=== PATIENT | male | born 1990 | race American Indian/Alaskan Native ===

== ENCOUNTER 2021-04-25 17:49 | Emergency (ER) | payer SELFPAY ==
[2021-04-25 20:44] LABS: Bilirubin,Urine NEG (Negative); Blood,Urine NEG (Negative); Color,Urine Yellow (Yellow); Mucus,Urine 3+ /HPF; Urobilinogen,Urine < 2.0 mg/dL (<2.0)
[2021-04-25 20:52] VITALS: BP 122/58
[2021-04-25 21:01] LABS: Basophils # (Auto) 0.1 K/mm3 (0.0-0.1); Basophils % (Auto) 0.6 % (0.0-1.8); Hematocrit 40.9 % (35.5-45.6); Hemoglobin 13.7 gm/dl (11.8-15.2); Lymphocytes # (Auto) 0.7 K/mm3 (1.2-5.4); Lymphocytes % (Auto) 7.6 % (13.4-35.0); Mean Corpuscular HGB Conc 34 % (32-34); Mean Corpuscular Volume 81 fl (84-94); Monocytes # (Auto) 0.6 K/mm3 (0.0-0.8); Monocytes % (Auto) 6.2 % (0.0-7.3); Platelet Count 183 K/mm3 (140-440); Red Blood Count 5.08 M/mm3 (3.65-5.03); Red Cell Distribution Width 15.1 % (13.2-15.2)
[2021-04-25] MEDS ORDERED: SODIUM CHLORIDE 0.9% 1000 ML 1,000 ML IV ONE (21:17)
[2021-04-25] MEDS ORDERED: ONDANSETRON 4 MG/2 ML INJ IV ONE (21:17)
[2021-04-25] MEDS ORDERED: fentaNYL 100 MCG/2 ML INJ IV ONE (21:17)
[2021-04-25 21:18] LABS: Alanine Aminotransferase 8 units/L (7-56); Albumin 4.9 g/dL (3.9-5); BUN/Creatinine Ratio 11; Blood Urea Nitrogen 14 mg/dL (9-20); Calcium 10.2 mg/dL (8.4-10.2); Hemolysis Index 1
[2021-04-25] MEDS ORDERED: DICYCLOMINE 20 MG/2 ML INJ IM ONE (21:18)
--- NOTE | 2021-04-25 21:27 | Emergency Department Report ---
HPI - General Chief Complaint: Abdominal Pain Time Seen by Provider: 04/25/21 21:12 - HPI HPI: Room 42 The patient is a 30-year-old male present with a chief complaint of nausea vomiting diarrhea. Patient states he believes he has food poisoning because he ate some chicken [employer]'s pizza last night and a few hours later he developed nausea vomiting diarrhea. Patient planes of intermittent diffuse abdominal pain. Patient denies history of fever. Patient states no one else ate the same meal as he. Patient denies any sick contacts. Patient was not vaccinated against Covid. Patient currently gives his pain a score of 8/10 ED Past Medical Hx - Past Medical History Hx HIV: Yes (Unknown CD4. On antiretrovirals) - Surgical History Past Surgical History?: No - Family History Family history: no significant - Social History Smoking Status: Current Some Day Smoker Substance Use Type: None (Denies illicit drug use), Alcohol (Occasional) - Medications Home Medications: Home Medications Medication Instructions Recorded Confirmed Last Taken Type Dicyclomine [Bentyl] 20 mg PO QID #20 tablet 04/25/21 Unknown Rx Diphenoxylate/Atropine [Lomotil] 2 tab PO QID PRN #20 tablet 04/25/21 Unknown Rx HYDROcodone/APAP 5-325 [[place] 1 - 2 each PO Q6HR PRN #7 tablet 04/25/21 Unknown Rx 5/325] Metoclopramide [Reglan] 10 mg PO TID #30 tab 04/25/21 Unknown Rx ED Review of Systems ROS: Stated complaint: NAUSEA/VOMITING Other details as noted in HPI Constitutional: denies: fever Eyes: denies: eye pain ENT: denies: throat pain Respiratory: no symptoms reported Cardiovascular: denies: chest pain Endocrine: no symptoms reported Gastrointestinal: abdominal pain, nausea, vomiting, diarrhea Genitourinary: denies: dysuria Musculoskeletal: denies: back pain Neurological: denies: headache Physical Exam - Physical Exam Vital Signs: Vital Signs 04/25/21 20:45 Temperature 98.5 F Pulse Rate 100 H Respiratory 20 Rate Blood Pressure 122/58 O2 Sat by Pulse 100 Oximetry Physical Exam: GENERAL: The patient is well-developed well-nourished male sitting in wheelchair leaning over appearing to be in mild discomfort. [] HEENT: Normocephalic. Atraumatic. Extraocular motions are intact. Patient has moist mucous membranes. NECK: Supple. Trachea midline CHEST/LUNGS: Clear to auscultation. There is no respiratory distress noted. HEART/CARDIOVASCULAR: Regular. There is no tachycardia. There is no gallop rub or murmur. ABDOMEN: Abdomen is soft, with mild discomfort to palpation in the midepigastric and suprapubic region. No rebound or guarding. Patient has normal bowel sounds. There is no abdominal distention. SKIN: There is no rash. There is no edema. There is no diaphoresis. NEURO: The patient is awake, alert, and oriented. The patient is cooperative. The patient has no focal neurologic deficits. The patient has normal speech. GCS 15 MUSCULOSKELETAL: There is no evidence of acute injury. ED Course Vital Signs 04/25/21 20:45 Temperature 98.5 F Pulse Rate 100 H Respiratory 20 Rate Blood Pressure 122/58 O2 Sat by Pulse 100 Oximetry - Reevaluation(s) Reevaluation #1: 04/25/21 21:57 Patient improved after medication. Asking when he will be discharged ED Medical Decision Making - Lab Data Result diagrams: 04/25/21 20:40 04/25/21 20:40 - Differential Diagnosis Foodborne illness, gastroenteritis, pancreatitis Critical care attestation.: If time is entered above; I have spent that time in minutes in the direct care of this critically ill patient, excluding procedure time. ED Disposition Clinical Impression: Gastroenteritis, Acute abdominal pain, Nausea vomiting and diarrhea Disposition: 01 HOME / SELF CARE / HOMELESS Is pt being admited?: No Does the pt Need Aspirin: No Condition: Stable Instructions: Abdominal Pain, Adult, [id number], Nausea and Vomiting, Adult, [id number], Diarrhea, Adult, [id number] Additional Instructions: Return to the emergency department should you develop worsening symptoms, inability to tolerate food or liquids, high fever or any other concerns Prescriptions: Dicyclomine [Bentyl] 20 mg PO QID #20 tablet Diphenoxylate/Atropine [Lomotil] 2 tab PO QID PRN #20 tablet PRN Reason: Diarrhea HYDROcodone/APAP 5-325 [[place] 5/325] 1 - 2 each PO Q6HR PRN #7 tablet PRN Reason: Pain Metoclopramide [Reglan] 10 mg PO TID #30 tab Time of Disposition: 22:30 (DC after IV fluids)
[2021-04-25] MEDS ORDERED: METOCLOPRAMIDE 10 MG/2 ML INJ IV ONE ×2 (21:49→21:50)
[2021-04-25] MEDS ORDERED: METOCLOPRAMIDE 10 MG/2 ML INJ ONE (21:50)
== END 2021-04-26 00:12 | disposition home or self-care (01) ==
LOC: ED 17:49
DX: K52.9 Noninfective gastroenteritis and colitis, unspecified (principal)
CPT/HCPCS: 36415; 80053; 81001; 83690; 85025; 96361; 96372; 96374; 96375; 99284; J0500; J2405; J2765; J3010; J7030